=== PATIENT | female | born 1955 | race Two or more races ===

== ENCOUNTER 2024-10-22 14:43 | Emergency (ER) | payer BC, MEDICAID ==
[~2024-10-22] VITALS: Ht 154.9 cm; Wt 134.1 kg
[2024-10-22 14:59] VITALS: BP 176/61; PULSE 67; RESP 18; O2SAT 97
--- NOTE | 2024-10-22 15:55 | DVH ---
CLINICAL INFORMATION: 69 years old, Female; fall injury. TECHNIQUE: Axial imaging was obtained through the brain without contrast. Coronal and sagittal refor matted images were obtained, reviewed, and stored. Images were reviewed in brain and bone windows. A ll CT scans at this medical facility are performed using dose modulation techniques as appropriate to a performed exam including the following: Automated exposure control was utilized; adjustment of the MA and/or KV according to patient size; and use of iterative reconstruction technique. CTDIvol = 57.45, 0.07 mGy DLP = 1015.48, 3.16 mGy-cm COMPARISON: None FINDINGS: There is no acute intracranial hemorrhage or extraaxial fluid collection. No mass effect o r midline shift. The ventricles and sulci are within normal limits in size for age. Basal cisterns a re patent. The calvarium is unremarkable. Paranasal sinuses and mastoid air cells are clear. Mode rate to large left posterior scalp hematoma. IMPRESSION: 1. No CT evidence of acute intracranial abnormality. 2. Moderate to large left posterior scalp hematoma.
--- NOTE | 2024-10-22 15:59 | DVH ---
CLINICAL HISTORY: fall injury. COMPARISON: None TECHNIQUE: Axial CT images of the cervical spine were obtained without IV contrast. Coronal and sagit alphonso reformatted images were obtained. All CT scans at this medical facility are performed using dose modulation techniques as appropriate to a performed exam including the following: Automated exposure control was utilized; adjustment of the MA and/or KV according to patient size; and use of iterative reconstruction technique. CTDIvol = 27.12, 0.07 mGy DLP = 738.49, 3.16 mGy-cm FINDINGS: Bones: Mild reversal of the normal cervical lordosis. No significant spondylolisthesis. Vertebral bod y heights are maintained. Posterior elements are intact. No acute fracture. Multilevel moderate disc space narrowing with associated endplate sclerosis and endplate spurring Paraspinal soft tissues: Prevertebral and paraspinal soft tissues are unremarkable. Other: Peripherally calcified nodule lobe measures up to 1.5 cm. IMPRESSION: 1. No evidence of acute fracture or spondylolisthesis. 2. Degenerative disc disease in the cervical spine as described above. 3. Right thyroid nodule measuring up to 1.5 cm in dimension with peripheral calcification. Based on s giselle, recommend nonemergent thyroid ultrasound per ACR white paper on incidentally detected thyroid no dules.
[2024-10-22] MEDS ORDERED: ACET-1881 PO (16:47)
--- NOTE | 2024-10-22 16:47 | ED.PDOC ---
HPI (NEURO) HPI Comments Portions of this chart may have been created with an modal fluency direct voice recognition software. Occasional wrong-word or "sound-alike" substitutions may have occurred due to the inherent limitations of voice recognition software. Please read the chart carefully and recognize, using context, where these substitutions have occurred. 69-year-old female with no pertinent MHx presents with a chief complaint of a mechanical fall x1 day. Reports she was walking and slipped on her slipper causing her to hit the back of her head on tile Pain rated as moderate Denies fever, chills, night sweats Denies persistent nausea Denies vomiting Denies family history of brain issues persistent headaches Denies taking any blood thinner medication Denies vision/hearing changes Denies focal loss of strength/sensation or changes in speech Chief Complaint: Fall Injury Time Seen by MD: 15:05 Primary Care Provider: UNKNOWN Reviewed Notes: Nurses Notes, Medications, Allergies Information Source: Patient Mode of Arrival: Ambulatory Past Medical History PAST MEDICAL HISTORY: Denies Surgical History: Denies all surgeries PIECE JOBBER History: No Pertinent PIECE JOBBER History Family History Family History: Reviewed,noncontributory to illness Social History Smoker: Non-Smoker Alcohol: Denies ETOH Use Drugs: Denies Drug Use All Other Systems: Reviewed and Negative (Per HPI) Physical Exam General Appearance: No Apparent Distress, Normal HEENT: Head (Hematoma to the posterior scalp. Tender to palpation. No open wounds no ecchymosis), Normal ENT Inspection, Pharynx Normal, TMs Normal Neck: Full Range of Motion, Non-Tender, Normal, Normal Inspection Respiratory: Chest Non-Tender, Lungs Clear, No Accessory Muscle Use, No Respiratory Distress, Normal Breath Sounds Cardiovascular: No Edema, No JVD, No Murmur, No Gallop, Normal Peripheral Pulses, Regular Rate/Rhythm Breast Exam: Deferred Gastrointestinal: No Organomegaly, Non Tender, No Pulsatile Mass, Normal Bowel Sounds, Soft Genitalia: Deferred Pelvic: Deferred Rectal: Deferred Extremities: No calf tenderness, Normal capillary refill, Normal inspection, Normal range of motion, Non-tender, No pedal edema Musculoskeletal : Apperance: Normal Neurologic: Alert, sample card maker II-XII nml as Tested, No Motor Deficits, Normal Affect, Normal Mood, No Sensory Deficits Cerebellar Function: Normal Reflexes: Normal Skin: Dry, Normal Color, Warm Lymphatic: No Adenopathy Was a procedure done? Was a procedure done?: No Differential Diagnosis (SZ) Headache: Closed Head Injury X-Ray, Labs, Meds, VS Vital Signs Date Time Temp Pulse Resp B/P (MAP) Pulse Ox O2 Delivery O2 Flow Rate FiO2 10/22/24 14:59 97.5 67 18 176/61 (99) 97 PATIENT: LORENZO JCT: [id number]: [id number] : 1955 LOC: ER ROOM / BED: / AGE / SEX: 69 / F ADM STATUS: REG ER SERVICE 1506 ORDERING PHYSICIAN: IVANA CASAREZ NP PROCEDURE(s): HWOCT - HEAD WITHOUT CONTRAST REASON: fall ORDER NUMBER(s): [id number], ACCESSION NUMBER(s): [id number] CLINICAL INFORMATION: 69 years old, Female; fall injury. TECHNIQUE: Axial imaging was obtained through the brain without contrast. Coron al and sagittal reformatted images were obtained, reviewed, and stored. Images were reviewed in brain and bone windows. All CT scans at this medical facility are performed using dose modulation techniques as appropriate to a performed exam including the following: Automated exposure control was utilized; adjustment of the MA and/or KV according to patient size; and use of iterative reconstruction technique. CTDIvol = 57.45, 0.07 mGy DLP = 1015.48, 3.16 mGy-cm COMPARISON: None FINDINGS: There is no acute intracranial hemorrhage or extraaxial fluid collection. No mass effect or midline shift. The ventricles and sulci are within normal limits in size for age. Basal cisterns are patent. The calvarium is unremarkable. Paranasal sinuses and mastoid air cells are clear. Moderate to large left posterior scalp hematoma. IMPRESSION: 1. No CT evidence of acute intracranial abnormality. 2. Moderate to large left posterior scalp hematoma. ATED BY: THOMPSON TRAORE DO DICTATED DATE/TIME: 10/22/241551 SIGNED BY: THOMPSON TRAORE DO SIGNED DATE/TIME: 10/22/241551 CC: X-Ray, Labs, Meds, VS Comment Patient is stable for discharge at this time. External notes reviewed. Test results and diagnostic imaging interpreted. All diagnostic findings, discharge care, education and instructions provided Follow-up with PCP in 2 to 3 days Patient verbalized understanding and agreed to treatment plan Vital signs stable, afebrile, no acute distress noted Patient ambulatory with strong steady gait Advised to return precautions for any new or worsening symptoms, return to ER immediately for re-evaluation Patient is aware that the purpose of this visit was for an acute medical emergency requiring emergent stabilization. Chronic conditions, including malignancies have not been ruled out. Patient is instructed to follow up with PCP as directed and discharge instructions for continued care and workup. If unable to arrange follow-up, patient is to return to the emergency department for reassessment. Patient (parent or legal guardian if applicable) was given verbal and written discharge instructions and acknowledges understanding. Time of 1ST Reevaluation: 16:45 Reevaluation 1ST: Improved Patient Education/Counseling: Diagnosis, Treatment Family Education/Counseling: Diagnosis, Treatment Departure 1 Departure Time of Disposition: 16:46 Impression: Primary Impression: Scalp hematoma Qualified Codes: S00.03XA - Contusion of scalp, initial encounter Additional Impression: Fall Qualified Codes: W19.XXXA - Unspecified fall, initial encounter Disposition: 01 HOME / SELF CARE / HOMELESS Condition: Stable e-Prescriptions Acetaminophen (Acetaminophen) 325 Mg Tab 325 MG PO Q6HP PRN for 10 Days, #40 TAB 0 Refills Prov: IVANA CASAREZ NP 10/22/24 Discharged With: Spouse Critical Care Note Critical Care Time?: No Stability Stability form required: No Heart Score Heart Score: Heart Score Response (Comments) Value History N/A 0 EKG N/A 0 Age N/A 0 Risk Factors N/A 0 Troponin N/A 0 Total 0 IVANA CASAREZ NP Oct 22, 2024 16:47
== END 2024-10-22 16:54 | disposition home or self-care (01) ==
LOC: ER 14:43
DX: S00.03XA Contusion of scalp, initial encounter (principal); M50.30 Other cervical disc degeneration, unspecified cervical region; W01.0XXA Fall on same level from slipping, tripping and stumbling without subsequent striking against object, initial encounter; Y93.01 Activity, walking, marching and hiking; Y92.89 Other specified places as the place of occurrence of the external cause; Y99.8 Other external cause status
CPT/HCPCS: 70450; 72125